=== PATIENT | female | born 1960 | race Two or more races ===

== ENCOUNTER 2021-10-19 10:53 | Inpatient (IN) | payer MEDICAID, OTHER ==
[~2021-10-19] VITALS: Ht 160 cm; Wt 50.1 kg
[2021-10-19] MEDS ORDERED: ACETAMINOPHEN 650 mg PER 20.3 mL UD PO ONE (11:30)
[2021-10-19 12:26] LABS: Urine Bacteria MOD /hpf (None Seen); Urine Blood Negative /uL (Negative); Urine Specific Gravity 1.002 (1.001-1.035); Urine WBC 18 /hpf (0 - 5)
[2021-10-19 13:01] LABS: Basophils # (auto) 0 10 ^3/uL (0-0.2); Basophils % (auto) 0.6 % (0.0-2.0); Eosinophils # (auto) 0.1 10 ^3/uL (0-0.8); Hematocrit 37.2 % (36.0-46.0); Hemoglobin 12.9 g/dL (12.2-16.2); Lymphocytes # (auto) 0.3 10 ^3/uL (0.4-5.4); Lymphocytes % (auto) 10.4 % (10.0-50.0); Mean Corpuscular Hemoglobin 30.8 pg (28.0-32.0); Mean Corpuscular Hgb Conc. 34.6 g/dL (32.0-36.0); Mean Corpuscular Volume 89.1 fL (80.0-100.0); Monocytes # (auto) 0.4 10 ^3/uL (0-1.3); Monocytes % (auto) 14.5 % (0.0-12.0); Neutrophils # (auto) 2.1 10 ^3/uL (1.6-8.6); Neutrophils % (auto) 72.5 % (37.0-80.0); Nucleated Red Blood Cells % 0.1 %; Red Blood Cells 4.17 10^6/uL (4.0-5.20); Red Cell Distribution Width 12.6 % (11.8-14.3); White Blood Cell 2.9 10^3/uL (4.4-10.8)
[2021-10-19 13:13] LABS: Albumin 3.8 g/dL (3.4-5.0); Calcium 8.2 mg/dL (8.5-10.1)
[2021-10-19 13:19] LABS: BUN/Creatinine Ratio 6.7; Bilirubin, Total 0.4 mg/dL (0.2-1.0); Total Protein 6.9 g/dL (6.4-8.2)
[2021-10-19 13:28] LABS: Potassium 2.9 mmol/L (3.5-5.1)
[2021-10-19] MEDS ORDERED: POTASSIUM CHL 20MEQ/50ML 50 ML IV ONE (15:15)
[2021-10-19] MEDS ORDERED: cefTRIAXone 1GM/50ML D5W 50 ML IV ONE (16:00)
[2021-10-19] MEDS ORDERED: KETOROLAC TROMETH 30 MG/ML 1ML VIAL IV ONE (20:45)
[2021-10-19] MEDS ORDERED: POTASSIUM EFFERVESENT TAB 25 MEQ PO ONE (20:45)
[2021-10-19] MEDS ORDERED: SODIUM CHLORIDE 0.9% 1,000 ML IV ONE (20:45)
[2021-10-19] MEDS ORDERED: NITROGLYCERIN 0.4 MG SL TAB SL PRN (21:00)
[2021-10-19] MEDS ORDERED: ONDANSETRON HCL 4 MG/2 ML VIAL IV PRN (21:00)
[2021-10-19] MEDS: POTASSIUM CHL 20MEQ/50ML 50 ML IV SCH ×2 (21:10→23:49)
[2021-10-19] MEDS: ALBUTEROL SULF HFA 90MCG INH 200DOSE IN PRN (22:20)
[2021-10-19] MEDS: ASCORBIC ACID 500 MG TAB PO SCH (23:48)
[2021-10-20 00:45] VITALS: BP 139/90
[2021-10-20] MEDS: ALPRAZolam 0.5 MG TAB PO PRN (01:06)
[2021-10-20] MEDS ORDERED: RIV20T PO (02:32)
[2021-10-20 04:20] VITALS: BP 135/92
[2021-10-20] MEDS: LEVOTHYROXINE SODIUM 25 MCG TAB PO SCH (06:34)
[2021-10-20] MEDS: LEVOTHYROXINE SODIUM 50 MCG TAB PO SCH (06:35)
[2021-10-20 07:47] LABS: Basophils # (auto) 0 10 ^3/uL (0-0.2); Basophils % (auto) 0.8 % (0.0-2.0); Eosinophils # (auto) 0 10 ^3/uL (0-0.8); Eosinophils % (auto) 0.4 % (0.0-7.0); Hematocrit 36.7 % (36.0-46.0); Hemoglobin 12.8 g/dL (12.2-16.2); Mean Corpuscular Hemoglobin 31.2 pg (28.0-32.0); Mean Corpuscular Hgb Conc. 34.9 g/dL (32.0-36.0); Mean Corpuscular Volume 89.3 fL (80.0-100.0); Monocytes % (auto) 17.3 % (0.0-12.0); Neutrophils # (auto) 0.9 10 ^3/uL (1.6-8.6); Neutrophils % (auto) 39.3 % (37.0-80.0); Nucleated Red Blood Cells % 0.2 %; Red Blood Cells 4.12 10^6/uL (4.0-5.20); Red Cell Distribution Width 12.8 % (11.8-14.3); White Blood Cell 2.3 10^3/uL (4.4-10.8)
[2021-10-20 07:48] LABS: Lymphocytes % (auto) 42.2 % (10.0-50.0); Monocytes # (auto) 0.3 10 ^3/uL (0-1.3)
[2021-10-20 08:18] LABS: BUN/Creatinine Ratio 9.3; Calcium 7.8 mg/dL (8.5-10.1)
[2021-10-20 09:00] VITALS: BP 133/76
[2021-10-20] MEDS: ASPirin 81 mg TAB PO SCH (09:32)
[2021-10-20] MEDS: ASCORBIC ACID 500 MG TAB PO SCH ×2 (09:32→23:01)
[2021-10-20] MEDS: ZINC SULFATE 220mg CAP or TAB PO SCH (09:32)
[2021-10-20] MEDS: levoFLOXacin 500MG 100 ML IV SCH (09:33)
[2021-10-20] MEDS: PANTOPRAZOLE 40 MG TAB PO SCH (09:33)
[2021-10-20] MEDS: CHOLECALCIFEROL (VITD3) 2,000 UNIT CAP/TAB PO SCH (09:33)
[2021-10-20] MEDS: SOTALOL HCL 80 MG TAB PO SCH (09:43)
[2021-10-20] MEDS ORDERED: ENOXAPARIN SOD 40 MG/0.4 ML SYRINGE SC SCH (10:00)
[2021-10-20 13:00] VITALS: BP 161/98
[2021-10-20] MEDS: MORPHINE SULFATE INJECTION 2 MG/ML SYRG IV PRN ×2 (14:22→20:16)
[2021-10-20 17:00] VITALS: BP 145/87
[2021-10-20] MEDS: HYDROcodone-ACET 5/325MG TAB PO PRN (17:27)
[2021-10-20] MEDS: ALBUTEROL SULF HFA 90MCG INH 200DOSE IN PRN (21:17)
[2021-10-20 22:00] VITALS: BP 135/72
[2021-10-21 04:00] VITALS: BP 123/76
[2021-10-21] MEDS: MORPHINE SULFATE INJECTION 2 MG/ML SYRG IV PRN (04:08)
[2021-10-21] MEDS: HYDROcodone-ACET 5/325MG TAB PO PRN (05:07)
[2021-10-21] MEDS: ALBUTEROL SULF HFA 90MCG INH 200DOSE IN PRN (05:59)
[2021-10-21] MEDS: LEVOTHYROXINE SODIUM 50 MCG TAB PO SCH (06:53)
[2021-10-21] MEDS: LEVOTHYROXINE SODIUM 25 MCG TAB PO SCH (06:53)
[2021-10-21] MEDS ORDERED: DABI150C5 PO (08:31)
[2021-10-21 09:00] VITALS: BP 115/70
[2021-10-21] MEDS: ZINC SULFATE 220mg CAP or TAB PO SCH (09:33)
[2021-10-21] MEDS: SOTALOL HCL 80 MG TAB PO SCH (09:33)
[2021-10-21] MEDS: levoFLOXacin 500MG 100 ML IV SCH (09:33)
[2021-10-21] MEDS: ASPirin 81 mg TAB PO SCH (09:33)
[2021-10-21] MEDS: ASCORBIC ACID 500 MG TAB PO SCH (09:34)
[2021-10-21] MEDS: CHOLECALCIFEROL (VITD3) 2,000 UNIT CAP/TAB PO SCH (09:34)
[2021-10-21] MEDS: PANTOPRAZOLE 40 MG TAB PO SCH (09:34)
[2021-10-21] MEDS: ALPRAZolam 0.5 MG TAB PO PRN (11:22)
== END 2021-10-21 13:51 | disposition left against medical advice (07) | DRG 465 ==
LOC: ER 10:53 → EDBD 10:53 → TELE 20:50 → TELE-EAST 23:33
PROVIDERS: ADMIT Hospitalist; ATTEND Hospitalist
DX: N23 Unspecified renal colic (principal); U07.1 COVID-19; N12 Tubulo-interstitial nephritis, not specified as acute or chronic; E87.6 Hypokalemia; Z53.29 Procedure and treatment not carried out because of patient's decision for other reasons; I48.0 Paroxysmal atrial fibrillation; J44.9 Chronic obstructive pulmonary disease, unspecified; N18.30 Chronic kidney disease, stage 3 unspecified; Z88.5 Allergy status to narcotic agent; Z88.0 Allergy status to penicillin; Z88.8 Allergy status to other drugs, medicaments and biological substances; Z90.710 Acquired absence of both cervix and uterus; Z90.49 Acquired absence of other specified parts of digestive tract
CPT/HCPCS: 36415; 71045; 74176; 80048; 80053; 81001; 85025; 87040; 87086; 87088; 87186; 87426; 93005; 94640; 96361; 96365; 96375; G0378; J0696; J1885; J1956